=== PATIENT | female | born 1965 | race Caucasian/White ===

== ENCOUNTER 2017-05-01 12:54 | Emergency (ER) | payer OTHER ==
[~2017-05-01] VITALS: Ht 162.6 cm; Wt 63.5 kg
[~2017-05-01 12:54] MED LIST: FIORICET,ESG1 TABLET PO; FIORINAL 50-321 EACH; INDOCIN50 MG PO; NOHOMEMEDS; NORCO 5/3251 TABLET PO; PERCOCET 5/31 TABLET PO
[2017-05-01 13:29] LABS: HEMATOCRIT 46.2 % (36.0-46.0); MCH 33.8 PG (29.0-34.0); MCHC 33.8 G/DL (30.0-36.0); MCV 100.2 FL (83-99); MEAN PLAT.VOLUME 8.6 uM^3 (9.5-12.4); PLATELET COUNT 261 K/uL (156-360); RBC DIS.WIDTH-CV 12.2 % (11.8-14.6); RBC DIS.WIDTH-SD 45.2 % (39-53); RED BLOOD COUNT 4.61 M/uL (3.80-5.20); WHITE BLOOD COUNT 8.4 K/uL (4.1-10.2)
[2017-05-01 13:40] LABS: CHLORIDE 101 mEq/L (99-109); SODIUM 138 mEq/L (136-147)
[2017-05-01 13:43] LABS: GLUCOSE 93 mg/dL (70-99)
[2017-05-01 13:44] LABS: ANION GAP 12 MEQ/L (2-14)
[2017-05-01 13:45] LABS: TOTAL BILIRUBIN 0.3 mg/dL (0.0-1.0)
[2017-05-01 13:46] LABS: ALKALINE PHOSPHATASE 147 IU/L (3-129); GFR ESTIMATE (CALCULATED) > 59 mL/min/; SERUM ETHYL ALCOHOL 273 mg/dL
[2017-05-01 13:48] LABS: UREA NITROGEN (BUN) 7 mg/dL (9-23)
[2017-05-01 13:50] LABS: TROP-I INTERPRETATION NEGATIVE; TROPONIN-I 0.02 ng/mL (0.0-0.30)
[2017-05-01 14:23] LABS: ADD MIUA? NO; BILIRUBIN NEGATIVE; BLOOD NEGATIVE; COLOR STRAW ((YELLOW)); GLUCOSE (STRIP) NEGATIVE; KETONES NEGATIVE; LEUKOCYTES NEGATIVE; NITRITE NEGATIVE; PROTEIN (STRIP) NEGATIVE; SPECIFIC GRAVITY 1.002 (1.000-1.030); UCUL ADDED? NO; UROBILINOGEN 0.2 MG/DL (0.2-1.0)
[2017-05-01 16:02] VITALS: BP 114/84
== END 2017-05-01 16:06 | disposition left against medical advice (07) ==
LOC: EME 12:54
PROVIDERS: Emergency Medicine
DX: F10.129 Alcohol abuse with intoxication, unspecified (principal); S22.31XD Fracture of one rib, right side, subsequent encounter for fracture with routine healing; R10.84 Generalized abdominal pain; R31.9 Hematuria, unspecified; R04.0 Epistaxis; Y90.8 Blood alcohol level of 240 mg/100 ml or more; V49.50XD Passenger injured in collision with unspecified motor vehicles in traffic accident, subsequent encounter; F17.200 Nicotine dependence, unspecified, uncomplicated
CPT/HCPCS: 71010; 71275; 74177; 80053; 81003; 84484; 85027; 93005; 99281; 99284; G0480

== ENCOUNTER 2017-12-11 20:24 | Emergency (ER) | payer OTHER ==
[~2017-12-11] VITALS: Ht 162.6 cm; Wt 65.4 kg
[2017-12-11] MEDS ORDERED: TYLENOL WITH C1 EACH PO (21:20)
[2017-12-11] MEDS ORDERED: MOTRIN800 MG PO (21:20)
[2017-12-11 21:37] LABS: HEMATOCRIT 42.3 % (36.0-46.0); HEMOGLOBIN 14.9 G/DL (11.9-15.5); MCH 34.3 PG (29.0-34.0); MCHC 35.2 G/DL (30.0-36.0); MCV 97.5 FL (83-99); PLATELET COUNT 179 K/uL (156-360); RBC DIS.WIDTH-CV 13.3 % (11.8-14.6); RBC DIS.WIDTH-SD 48.4 % (39-53); RED BLOOD COUNT 4.34 M/uL (3.80-5.20); WHITE BLOOD COUNT 8.3 K/uL (4.1-10.2)
[2017-12-11 21:45] LABS: CHLORIDE 107 mEq/L (99-109); SODIUM 141 mEq/L (136-147)
[2017-12-11 21:47] LABS: GLUCOSE 124 mg/dL (70-99)
[2017-12-11 21:51] LABS: CREATININE 0.8 mg/dL (0.6-1.3); GFR ESTIMATE (CALCULATED) > 59 mL/min/
[2017-12-11 21:52] LABS: UREA NITROGEN (BUN) 14 mg/dL (9-23)
[2017-12-11 21:53] LABS: URIC ACID 4.1 mg/dL (3.1-9.2)
[2017-12-11 22:16] VITALS: BP 115/89
[2017-12-11 22:16] LABS: C-REACTIVE PROTEIN 1.5 MG/L (0-10)
== END 2017-12-11 22:18 | disposition home or self-care (01) ==
LOC: EME 20:24
PROVIDERS: Physician Assistant
DX: M25.531 Pain in right wrist (principal); F17.200 Nicotine dependence, unspecified, uncomplicated
CPT/HCPCS: 73110; 80048; 84550; 85027; 86140; 99281; 99283

== ENCOUNTER 2018-01-04 16:51 | Emergency (ER) | payer OTHER ==
[~2018-01-04] VITALS: Ht 162.6 cm; Wt 67.0 kg
[~2018-01-04 16:51] MED LIST changes: +MOTRIN800 MG PO; +TYLENOL WITH C1 EACH PO
[2018-01-04] MEDS ORDERED: ULTRACET1 TABLET PO (20:00)
[2018-01-04] MEDS ORDERED: MOTRIN800 MG PO (20:00)
[2018-01-04 21:26] VITALS: BP 124/72
== END 2018-01-04 21:27 | disposition home or self-care (01) ==
LOC: EME 16:51
DX: S40.011A Contusion of right shoulder, initial encounter (principal); F10.129 Alcohol abuse with intoxication, unspecified; W51.XXXA Accidental striking against or bumped into by another person, initial encounter; Y93.83 Activity, rough housing and horseplay; F17.200 Nicotine dependence, unspecified, uncomplicated
CPT/HCPCS: 73060; 99281; 99284; J1885